=== PATIENT | female | born 1985 | race Caucasian/White ===

== ENCOUNTER 2023-08-02 09:19 | Emergency (ER) | payer BC ==
[~2023-08-02] VITALS: Ht 165.1 cm; Wt 131.5 kg
[2023-08-02 09:29] VITALS: O2SAT 97
[2023-08-02] MEDS: KETOROLAC 15MG/ML VIAL IM ONE (11:11)
[2023-08-02 11:34] VITALS: BP 140/81; PULSE 75; RESP 16; TEMP 98.6
== END 2023-08-02 11:40 | disposition home or self-care (01) ==
LOC: ER 09:19
DX: K42.9 Umbilical hernia without obstruction or gangrene (principal); Z98.890 Other specified postprocedural states
CPT/HCPCS: 99283; 81025; 96372; J1885